=== PATIENT | female | born 1980 | race Caucasian/White ===

== ENCOUNTER 2022-02-05 10:55 | Emergency (ER) | payer BC, SELFPAY ==
[2022-02-05 11:07] VITALS: BP 140/81; PULSE 93; RESP 16; TEMP 36; O2SAT 98
--- NOTE | 2022-02-05 11:46 | ED.URI ---
HPI - URI/Sore Throat General Chief Complaint: Upper Respiratory Infection Stated Complaint: Sore Throat,Cough, Time Seen by Provider: 02/05/22 11:39 Source: patient Mode of arrival: ambulatory Limitations: no limitations History of Present Illness HPI Narrative: Patient presents today complaining of a 2 day history of sore throat, congestion, rhinorrhea, cough, body aches. Denies fever. She tested positive for COVID-19 yesterday. But she has also had exposure to strep and influenza within her household. She currently rates her pain 7/10 in his taking Tylenol p.m. NyQuil with relief. Related Data Home Medications Medication Instructions Recorded Confirmed bupropion HCl 300 mg 24 hr tablet, 300 mg PO DAILY 02/05/22 02/05/22 extended release escitalopram oxalate 20 mg tablet 20 mg PO DAILY 02/05/22 02/05/22 Allergies Allergy/AdvReac Type Severity Reaction Status Date / Time nitrofurantoin Allergy Intermediate Unknown Verified 02/05/22 11:17 Review of Systems Review of Systems: CONSTITUTIONAL: Denies fever, chills, or sweats.+ body aches EYES: Denies visual changes, redness, or discharge. ENT: Denies otalgia.+ sore throat, congestion, rhinorrhea CARDIOVASCULAR: Denies chest pain, palpitations, or edema. RESPIRATORY: Denies dyspnea.+ productive cough GASTROINTESTINAL: Denies abdominal pain, nausea, vomiting, or diarrhea. GENITOURINARY: Denies dysuria or hematuria. SKIN: Denies rash, itching, or wounds. MUSCULOSKELETAL: Denies back pain, joint pain, or myalgia. NEUROLOGIC: Denies headache, numbness, tingling, or weakness. PSYCH: Denies depression or anxiety. PMFSH Comments At time of signature, I have reviewed and agree with nursing past medical, surgical, social and family history unless otherwise noted. Please see nursing chart for further information. There is no relevant family history pertinent to the presenting complaint Exam Narrative: GENERAL: Mildly ill-appearing, well-nourished, and in no acute distress. HEAD: Normocephalic, atraumatic. EYES: EOMI. No redness or drainage. Conjunctivae normal. ENT: Mucous membranes pink and moist. Nares congested. No rhinorrhea. TMs normal bilaterally. Throat mildly erythematous without edema or exudate. Uvula midline. NECK: Normal AROM. Supple. No lymphadenopathy. CHEST: No respiratory distress. Clear to auscultation. HEART: Regular rate and rhythm. No murmur appreciated. Normal peripheral pulses. EXTREMITIES: Normal range of motion. No edema. SKIN: Warm, dry, no rash. Capillary refill normal. Normal skin turgor. NEURO: No focal deficits. Alert and oriented x3. Gait steady. PSYCH: Normal affect. No signs of depression or anxiety. Course Course Emergency Course: We are out of influenza and rapid strep tests. Will swab the patient for strep culture and call her with results in 2 days. Patient agrees with plan. Level of Care: Express Care Visit Vital Signs Vital signs: Vital Signs Temperature 96.8 F L 02/05/22 11:07 Pulse Rate 93 02/05/22 11:07 Respiratory Rate 16 02/05/22 11:07 Blood Pressure 140/81 02/05/22 11:07 Pulse Oximetry 98 02/05/22 11:07 Oxygen Delivery Room Air 02/05/22 11:07 Temperature 96.8 F L 02/05/22 11:07 Pulse Rate 93 02/05/22 11:07 Respiratory Rate 16 02/05/22 11:07 Blood Pressure 140/81 02/05/22 11:07 Pulse Oximetry 98 02/05/22 11:07 Oxygen Delivery Room Air 02/05/22 11:07 Reviewed. Pt has been instructed to follow up with her PCP regarding her elevated blood pressure today. MDM - URI/Sore Throat Differential Diagnosis Differential diagnosis: Likely upper respiratory infection, viral infection, influenza and other (Strep throat, COVID-19) Critical Care Time Critical Care Time Critical Care Time: No Discharge Plan Discharge Clinical Impression: COVID-19 Pharyngitis Qualifiers: Pharyngitis/tonsillitis etiology: unspecified etiology Qualified Code(s): J02.9 - Acute pharyng
== END 2022-02-05 11:52 | disposition home or self-care (01) ==
PROVIDERS: Emergency Provider Nurse Practitioner; PCP Family Medicine
DX: U07.1 COVID-19 (principal); J02.9 Acute pharyngitis, unspecified
CPT/HCPCS: 87081; 99212; G0463